=== PATIENT | male | born 1975 | race Caucasian/White ===

== ENCOUNTER 2017-04-11 23:12 | Emergency (ER) | payer OTHER ==
[2017-04-12 03:51] VITALS: BP 136/86
== END 2017-04-12 03:51 | disposition home or self-care (01) ==
LOC: ED 23:12
DX: K04.7 Periapical abscess without sinus (principal); J45.909 Unspecified asthma, uncomplicated; I50.9 Heart failure, unspecified; Z88.0 Allergy status to penicillin; Z88.8 Allergy status to other drugs, medicaments and biological substances
CPT/HCPCS: J3490